=== PATIENT | female | born 1985 | race Caucasian/White ===

== ENCOUNTER 2017-07-28 15:34 | Emergency (ER) | payer MEDICAID, OTHER ==
[2017-07-28 15:44] VITALS: BP 93/62; PULSE 78; RESP 17; TEMP 97.9; O2SAT 98
--- NOTE | 2017-07-28 17:30 | EDPHY ---
H & P Time Seen by Provider: 07/28/17 17:16 HPI/ROS: CHIEF COMPLAINT: Right 4th digit injury HISTORY OF PRESENT ILLNESS: 31-year-old female with up-to-date tetanus was cleaning a glass object when the glass broke she sustained a laceration to her right 4th digit distal phalanx. No paresthesia. No foreign body sensation. Occurred prior to arrival. PHYSICAL EXAM (Prior to examination, patient consented to physical exam, hands were washed and my usual and customary physical exam procedures followed) 1) GENERAL: Well-developed, well-nourished, alert and oriented. Appears to be in no acute distress. 2) HEAD: Normocephalic 3) HEENT: sclera anicteric 4) LUNGS: Breathing comfortably. 5) SKIN: right 4th digit distal phalanx nonviable flap which is superficial. Tender. 6) MUSCULOSKELETAL: flexor extensor function intact at the MCP PIP D IP 7) NEUROLOGIC: Full sensation distally. Smoking Status: Never smoked Constitutional: Initial Vital Signs Temperature (C) 36.6 C 07/28/17 15:42 Heart Rate 78 07/28/17 15:42 Respiratory Rate 17 07/28/17 15:42 Blood Pressure 93/62 L 07/28/17 15:42 O2 Sat (%) 98 07/28/17 15:42 O2 Delivery Mode Room Air Allergies/Adverse Reactions: No Known Allergies Allergy (Unverified 07/28/17 15:40) Home Medications: Medication Instructions Recorded Mylan/Bcp's 07/28/17 MDM/Departure - MDM Procedures: Procedure: Laceration repair. I explained the indications, risks and benefits for both laceration repair and anesthetic administration. Verbal consent was obtained from the patient . The laceration on the left 4th digit was anesthetized using 0.5% bupivicaine without epinephrine digital nerve block. After anesthetic administered the patient was observed for a period of time and had no apparent adverse effects. The wound was cleaned, prepped, draped in normal sterile fashion and explored to its base. No foreign body seen, no foreign bodies palpated. There were no deep structures involved. No tendon injury was identified. The superficial flap tissue was nonviable and was debrided by myself. Surgicel dressing placed by ER staff. The wound repair was simple. The procedure was performed by myself. Patient has been informed that scarring will occur, although efforts have been made to minimize this. ED Course/Re-evaluation: Care of patient under supervision of secondary supervising physician Dr Grider . - Depart Disposition: Home, Routine, Self-Care Clinical Impression: Avulsion of skin of finger Qualifiers: Encounter type: initial encounter Qualified Code(s): S61.209A - Unspecified open wound of unspecified finger without damage to nail, initial encounter Condition: Good Instructions: Skin Avulsion (ED) Additional Instructions: Return to the ER if you develop redness, swelling, discharge, warmth to the wound, red streaks going up your arm , or any other symptoms that concern you. Referrals: Anatoly Link MD [Medical Doctor] - 2-3 days, call for appt.
== END 2017-07-28 18:36 | disposition home or self-care (01) ==
PROC: 3E0T3BZ Introduction of Anesthetic Agent into Peripheral Nerves and Plexi, Percutaneous Approach (ICD-10-PCS; principal; 2017-07-28)
DX: S61.205A Unspecified open wound of left ring finger without damage to nail, initial encounter (principal); W25.XXXA Contact with sharp glass, initial encounter; Y99.8 Other external cause status; Y93.89 Activity, other specified